=== PATIENT | male | born 1990 | race Caucasian/White ===

== ENCOUNTER 2023-05-03 00:17 | Inpatient (IN) | payer MEDICAID ==
[2023-05-03] VITALS (8 sets, daily range): BP systolic 106–127; BP diastolic 70–83; PULSE 87–93; RESP 17–20; TEMP 97.6–98.5; O2SAT 95–97
[~2023-05-03] VITALS: Ht 167.6 cm; Wt 85.3 kg
[2023-05-03] MEDS ORDERED: HALOPERIDOL 5 MG TABLET PO PRN (02:00)
[2023-05-03] MEDS: SERTRALINE HCL 50 MG TABLET PO SCH (13:24)
[2023-05-03] MEDS ORDERED: PETROLATUM,WHITE 28 GM JELLY TP PRN (16:00)
[2023-05-03] MEDS ORDERED: CloNIDine HCL 0.1 MG TABLET PO PRN (16:00)
[2023-05-03] MEDS ORDERED: IBUPROFEN 400 MG TABLET PO PRN (16:00)
[2023-05-03] MEDS ORDERED: ONDANSETRON HCL 4 MG TABLET PO PRN (16:00)
[2023-05-03] MEDS ORDERED: DOCUSATE SODIUM 100 MG CAPSULE PO PRN (16:00)
[2023-05-03] MEDS ORDERED: ALBUTEROL SULFATE HFA 90 MCG/PUFF 8 GM INHALER IH PRN (16:00)
[2023-05-03] MEDS ORDERED: NICOTINE 14 MG/24 HOUR PATCH TD PRN (16:00)
[2023-05-03] MEDS ORDERED: GuaiFENesin/D-METHORPHAN [SUGAR-FREE] 200-20MG/10 ML SYRUP UDCUP PO PRN (16:00)
[2023-05-03] MEDS ORDERED: ACETAMINOPHEN 325 MG TABLET PO PRN (16:00)
[2023-05-03] MEDS ORDERED: LOPERAMIDE HCL 2 MG CAPSULE PO PRN (16:00)
[2023-05-03] MEDS ORDERED: MAG HYDROX/AL HYDROX/SIMETH ES 30 ML SUSPENSION UDCUP PO PRN (16:00)
[2023-05-03] MEDS ORDERED: MAGNESIUM HYDROXIDE SUSPENSION 30 ML UDCUP PO PRN (16:00)
[2023-05-03] MEDS: ZOLPIDEM TARTRATE 10 MG TABLET PO PRN (21:20)
[2023-05-03] MEDS: PRAZOSIN HCL 1 MG CAPSULE PO SCH (21:20)
[2023-05-03] MEDS: MIRTAZAPINE 15 MG TABLET PO SCH (21:20)
[2023-05-04 01:12] VITALS: TEMP 97.6
[2023-05-04 04:17] VITALS: TEMP 97.8
[2023-05-04 07:40] LABS: BASOPHILS % (AUTO) 0.6 % (0.0-2.0); EOSINOPHILS % (AUTO) 3.3 % (1.0-6.0); HEMATOCRIT 45.1 % (41-53); LYMPHOCYTES # (AUTO) 2.4 K/uL (1.0-4.8); MEAN CORPUSCULAR HEMOGLOBIN 30.2 pg (26.0-34.0); MEAN CORPUSCULAR HGB CONC 33.3 G/dL (31.0-37.0); MEAN CORPUSCULAR VOLUME 91 fL (80-100); MONOCYTES # (AUTO) 0.5 K/uL (0.1-1.0); MONOCYTES % (AUTO) 7.9 % (2.0-9.0); NEUTROPHILS # (AUTO) 3.5 K/uL (1.8-7.7); NEUTROPHILS % (AUTO) 52.2 % (40.0-70.0); PLATELET COUNT (AUTO) 259 K/uL (150-450); RED BLOOD CELL COUNT(AUTO) 4.98 MIL/uL (4.50-5.90); RED CELL DISTRIBUTION WIDTH 13.1 % (11.5-14.5); WHITE BLOOD COUNT (AUTO) 6.7 K/uL (4.5-11.0)
[2023-05-04 08:04] LABS: HEMOGLOBIN A1C 5.2 % (3.8-5.6)
[2023-05-04] MEDS: SERTRALINE HCL 50 MG TABLET PO SCH (08:04)
[2023-05-04 08:07] LABS: ALANINE AMINOTRANSFERASE 31 U/L (12-78); ALBUMIN 3.3 g/dL (3.4-5.0); ALKALINE PHOSPHATASE 110 U/L (46-116); ANION GAP 8 mmol/L (8-16); ASPARTATE AMINOTRANSFERASE 19 U/L (15-37); BILIRUBIN,TOTAL 0.3 mg/dL (0.1-1.0); CALCIUM, TOTAL 8.6 mg/dL (8.8-10.5); CARBON DIOXIDE 27 mmol/L (22-29); CHLORIDE 105 mmol/L (98-107); CHOLESTEROL 159 mg/dL (131-200); CREATININE 0.64 mg/dL (0.60-1.30); FREE T4 (FREE THYROXINE) 0.86 ng/dL (0.76-1.46); GLOMERULAR FILTR. RATE CALC > 60 mL/min (>60); GLUCOSE,RANDOM 91 mg/dL (70-110); HDL CHOLESTEROL 40 mg/dL (40-60); LDL CHOL (CALC.) 100 mg/dL (0-130); POTASSIUM 4.1 mmol/L (3.5-5.1); SODIUM SERUM 140 mmol/L (136-145); THYROID STIMULATING HORMONE 0.34 uIU/mL (0.36-3.74); TOTAL PROTEIN, SERUM 6.3 g/dL (6.4-8.2); TRIGLYCERIDES 96 mg/dL (15-150); UREA NITROGEN, BLOOD 9 mg/dL (7-18)
[2023-05-04 08:38] VITALS: BP 114/63; PULSE 74; RESP 17; TEMP 98.3; O2SAT 96
[2023-05-04 20:02] VITALS: BP 118/64; PULSE 70; RESP 18; TEMP 98.2; O2SAT 97
[2023-05-04] MEDS: PRAZOSIN HCL 1 MG CAPSULE PO SCH (20:15)
[2023-05-04] MEDS: MIRTAZAPINE 15 MG TABLET PO SCH (20:15)
[2023-05-04] MEDS: ZOLPIDEM TARTRATE 10 MG TABLET PO PRN (20:15)
[2023-05-05] MEDS: SERTRALINE HCL 50 MG TABLET PO SCH (08:00)
[2023-05-05 08:30] VITALS: BP 103/61; PULSE 68; RESP 17; TEMP 98; O2SAT 92
[2023-05-05 20:02] VITALS: BP 108/62; PULSE 70; RESP 18; TEMP 98.2; O2SAT 96
[2023-05-05] MEDS: MIRTAZAPINE 15 MG TABLET PO SCH (20:12)
[2023-05-05] MEDS: PRAZOSIN HCL 1 MG CAPSULE PO SCH (20:13)
[2023-05-05] MEDS: ZOLPIDEM TARTRATE 10 MG TABLET PO PRN (20:13)
[2023-05-05] MEDS: LORazepam 2 MG TABLET PO PRN (20:13)
[2023-05-06 07:59] VITALS: BP 107/70; PULSE 89; RESP 18; TEMP 98.3; O2SAT 97
[2023-05-06] MEDS: SERTRALINE HCL 50 MG TABLET PO SCH (08:03)
[2023-05-06 08:30] VITALS: BP 107/70; PULSE 89; RESP 18; TEMP 98.3; O2SAT 97
[2023-05-06 20:11] VITALS: BP 115/73; PULSE 85; RESP 18; TEMP 98.3; O2SAT 96
[2023-05-06] MEDS: PRAZOSIN HCL 1 MG CAPSULE PO SCH (20:29)
[2023-05-06] MEDS: ZOLPIDEM TARTRATE 10 MG TABLET PO PRN (20:29)
[2023-05-06] MEDS: MIRTAZAPINE 15 MG TABLET PO SCH (20:29)
[2023-05-07] MEDS: SERTRALINE HCL 50 MG TABLET PO SCH (08:00)
[2023-05-07 08:21] VITALS: BP 119/74; PULSE 100; RESP 17; TEMP 97.8; O2SAT 95
[2023-05-07] MEDS: PRAZOSIN HCL 1 MG CAPSULE PO SCH (20:02)
[2023-05-07] MEDS: MIRTAZAPINE 15 MG TABLET PO SCH (20:02)
[2023-05-07] MEDS: LORazepam 2 MG TABLET PO PRN (20:02)
[2023-05-07 20:33] VITALS: BP 134/96; PULSE 82; RESP 18; TEMP 98.2; O2SAT 97
[2023-05-07] MEDS: ZOLPIDEM TARTRATE 10 MG TABLET PO PRN (21:03)
[2023-05-08] MEDS: SERTRALINE HCL 50 MG TABLET PO SCH (08:00)
[2023-05-08 08:01] VITALS: BP 103/60; PULSE 88; RESP 17; TEMP 98; O2SAT 95
[2023-05-08 20:04] VITALS: BP 108/62; PULSE 76; RESP 18; TEMP 98; O2SAT 97
[2023-05-08] MEDS: PRAZOSIN HCL 1 MG CAPSULE PO SCH (20:04)
[2023-05-08] MEDS: MIRTAZAPINE 15 MG TABLET PO SCH (20:04)
[2023-05-08] MEDS: ZOLPIDEM TARTRATE 10 MG TABLET PO PRN (20:04)
[2023-05-09 08:10] VITALS: BP 100/72; PULSE 96; RESP 18; TEMP 97.9; O2SAT 96
[2023-05-09] MEDS: SERTRALINE HCL 50 MG TABLET PO SCH (09:05)
[2023-05-09] MEDS: MIRTAZAPINE 15 MG TABLET PO SCH (20:06)
[2023-05-09] MEDS: ZOLPIDEM TARTRATE 10 MG TABLET PO PRN (20:06)
[2023-05-09] MEDS: PRAZOSIN HCL 1 MG CAPSULE PO SCH (20:06)
[2023-05-09 20:11] VITALS: BP 104/64; PULSE 87; RESP 18; TEMP 97.6; O2SAT 96
[2023-05-10 08:18] VITALS: BP 109/71; PULSE 83; RESP 17; TEMP 97.9; O2SAT 94
[2023-05-10] MEDS: SERTRALINE HCL 50 MG TABLET PO SCH (08:18)
[2023-05-10 20:05] VITALS: BP 114/64; PULSE 80; RESP 18; TEMP 97.6; O2SAT 97
[2023-05-10] MEDS: ZOLPIDEM TARTRATE 10 MG TABLET PO PRN (21:26)
[2023-05-10] MEDS: PRAZOSIN HCL 1 MG CAPSULE PO SCH (21:26)
[2023-05-10] MEDS: MIRTAZAPINE 15 MG TABLET PO SCH (21:26)
[2023-05-10] MEDS: LORazepam 2 MG TABLET PO PRN (21:38)
[2023-05-11] MEDS: SERTRALINE HCL 50 MG TABLET PO SCH (08:30)
[2023-05-11 08:31] VITALS: BP 116/67; PULSE 76; RESP 18; TEMP 98; O2SAT 96
[2023-05-11] MEDS: MIRTAZAPINE 15 MG TABLET PO SCH (20:04)
[2023-05-11] MEDS: PRAZOSIN HCL 1 MG CAPSULE PO SCH (20:04)
[2023-05-11] MEDS: ZOLPIDEM TARTRATE 10 MG TABLET PO PRN (20:39)
[2023-05-11 22:23] VITALS: RESP 17
[2023-05-12 08:09] VITALS: BP 109/69; PULSE 70; RESP 19; TEMP 97.5; O2SAT 96
[2023-05-12] MEDS ORDERED: SERT-158 PO (08:33)
[2023-05-12] MEDS ORDERED: PRAZ2 PO (08:34)
[2023-05-12] MEDS ORDERED: MIRT-89 PO ×2 (08:34→08:59)
[2023-05-12] MEDS: SERTRALINE HCL 50 MG TABLET PO SCH (08:46)
[2023-05-12] MEDS ORDERED: PRAZ1 PO (08:59)
[2023-05-12] MEDS ORDERED: ARIP10642 IM (08:59)
[2023-05-12] MEDS ORDERED: SERT-439 PO (08:59)
[2023-06-18] MEDS ORDERED: ARIPiprazole LAUROXIL ER SUSPENSION 1064 MG/3.9 ML SYRINGE IM SCH (09:00)
== END 2023-05-12 11:45 | disposition home or self-care (01) | DRG 750 ==
LOC: EDBD → B3A 03:04 → B2X 05-11 12:07
PROVIDERS: ADMIT Psychiatry & Neurology Psychiatry; ATTEND Psychiatry & Neurology Psychiatry
DX: F25.1 Schizoaffective disorder, depressive type (principal); R45.851 Suicidal ideations; E66.3 Overweight; G47.00 Insomnia, unspecified; F41.9 Anxiety disorder, unspecified; E05.80 Other thyrotoxicosis without thyrotoxic crisis or storm; Z59.00 Homelessness unspecified; Z79.899 Other long term (current) drug therapy; Z91.51 Personal history of suicidal behavior; Z68.30 Body mass index [BMI] 30.0-30.9, adult
CPT/HCPCS: 80053; 80061; 83036; 84439; 84443; 85025